=== PATIENT | male | born 1985 | race Two or more races ===

== ENCOUNTER 2020-08-09 12:21 | Outpatient (REF) | payer OTHER, SELFPAY ==
[2020-08-09 12:58] LABS: COVID-19 Test Negative (Negative)
== END 2020-08-09 12:22 | disposition home or self-care (01) ==
LOC: HO.LAB 12:21
PROVIDERS: Visit Provider Internal Medicine
DX: Z20.822 Contact with and (suspected) exposure to COVID-19 (principal)
CPT/HCPCS: 36415; 87635; C9803

== ENCOUNTER 2020-11-18 12:03 | Outpatient (REF) | payer OTHER, SELFPAY | END 2020-11-18 12:04 | disposition home or self-care (01) | LOC: HO.LAB 12:03 | PROVIDERS: Visit Provider Internal Medicine | DX: Z20.822 Contact with and (suspected) exposure to COVID-19 (principal) | CPT/HCPCS: C9803; U0003; U0005 ==

== ENCOUNTER 2021-03-23 11:06 | Outpatient (REF) | payer OTHER, SELFPAY | END 2021-03-23 11:07 | disposition home or self-care (01) | LOC: HO.LAB 11:06 | PROVIDERS: Visit Provider Internal Medicine | DX: Z20.822 Contact with and (suspected) exposure to COVID-19 (principal) | CPT/HCPCS: C9803; U0003; U0005 ==

== ENCOUNTER 2021-04-06 13:10 | Outpatient (REF) | payer OTHER, SELFPAY ==
[2021-04-06 16:34] LABS: COVID-19 Test Negative (Negative)
== END 2021-04-06 13:11 | disposition home or self-care (01) ==
LOC: HO.LAB 13:10
PROVIDERS: Visit Provider Internal Medicine
DX: Z20.822 Contact with and (suspected) exposure to COVID-19 (principal)
CPT/HCPCS: 36415; 87635; C9803